=== PATIENT | male | born 1985 | race Caucasian/White ===

== ENCOUNTER 2017-01-09 10:30 | Emergency (ER) | payer MEDICAID ==
[~2017-01-09] VITALS: Ht 188 cm; Wt 97.0 kg
[~2017-01-09 10:30] MED LIST: ROBA750T PO
[2017-01-09 10:37] VITALS: BP 121/91; PULSE 80; RESP 15; TEMP 100.8; O2SAT 98
--- NOTE | 2017-01-09 11:40 | PD ---
HPI Chief Complaint: Pain: Acute or Chronic Time Seen by Provider: 11:40 Travel History International Travel<30 days: No Contact w/Intl Traveler<30days: No Traveled to known affect area: No History of Present Illness HPI 31-year-old male presents to ED for evaluation of less than 24 hour history of bilateral great toe pain, right greater than left. Pain worsened with ambulation. He denies numbness, tingling, weakness, limitation to range of motion of the bilateral lower extremities. Denies fever, chills, known injury to the area. Patient states that he's had a similar episode in the past which he self diagnosed as gout. He states that he attempted to treat with black herrera juice which he states cleared up his symptoms the last episode however no improvement today. Patient denies chronic health problems, takes no daily medications. NKDA. PFSH Past Medical History Diabetes: No Diminished Hearing: No Integumentary: Yes (CONTACT DERMATITIS.) Influenza Vaccination: No ?: Not Past Surgical History Abdominal Surgery: Yes (HERNIA REPAIR) Social History Alcohol Use: Yes (OCC) Tobacco Use: Yes (cigars occasionally) Substance Use: No Allergies-Medications (Allergen,Severity, Reaction): Coded Allergies: No Known Allergies (Verified , 01/09/17) Reported Meds & Prescriptions Reported Meds & Active Scripts Active Indomethacin 50 Mg Cap 50 Mg PO TID 7 Days Take with food, milk, or antacids to decrease stomach adverse effects. Robaxin (Methocarbamol) 750 Mg Tab 750 Mg PO Q4H Review of Systems Except as stated in HPI: all other systems reviewed are Neg Physical Exam Narrative GENERAL: Well-nourished, well-developed white male in no acute distress. SKIN: Warm and dry. Mild erythema of the MCP joints of bilateral great toes. No warmth. No drainage. HEAD: Normocephalic. EYES: No scleral icterus. No injection or drainage. NECK: Supple, trachea midline. No JVD or lymphadenopathy. CARDIOVASCULAR: Regular rate and rhythm without murmurs, gallops, or rubs. 2+ DP pulses bilaterally. RESPIRATORY: Breath sounds equal bilaterally. No accessory muscle use. GASTROINTESTINAL: Abdomen soft, non-tender, nondistended. MUSCULOSKELETAL: No cyanosis, or edema. Tender to palpation of the MCP joint of bilateral great toes, right greater than left. Patient is able to flex and extend the toes bilaterally. Patient is able to flex and extend the ankles bilaterally. Cap refill less than 2 seconds. Sensation intact to light touch distally. BACK: Nontender without obvious deformity. No CVA tenderness. Data Data Last Documented VS Vital Signs Date Time Temp Pulse Resp B/P Pulse Ox O2 Delivery O2 Flow Rate FiO2 01/09/17 10:37 100.8 80 15 121/91 98 Orders Toe (Min 2vws) (01/09/17 11:39) MDM Medical Decision Making Medical Screen Exam Complete: Yes Emergency Medical Condition: Yes Differential Diagnosis Osteoarthritis versus gout versus septic joint versus cellulitis versus fracture versus dislocation versus other Narrative Course 31-year-old male presents to ED for evaluation of less than 24 hour history of bilateral great toe pain, right greater than left. Pain worsened with ambulation. He denies numbness, tingling, weakness, limitation to range of motion of the bilateral lower extremities. Denies fever, chills, known injury to the area. Patient states that he's had a similar episode in the past which he self diagnosed as gout. He states that he attempted to treat with black herrera juice which he states cleared up his symptoms the last episode however no improvement today. Vitals reviewed. Physical exam reveals a well-appearing white male in no acute distress. There is mild erythema of the bilateral MCP joints. No drop warmth or drainage. Right is greater than left. MCP joint also tender to palpation again right greater than left. No deficits of ROM. Neurovascularly intact. X-ray of the great toe does reveal bone spurs. This is podagra. Patient was cautioned to avoid red meat, alcohol, seafood. He was prescribed indomethacin 50 mg 3 times a day 7 days. He is instructed to take medication as prescribed, rest, ice, elevate the extremity, follow up with primary care provider. He indicated understanding of instructions. He is stable and discharged home. Diagnosis Primary Impression: Podagra Referrals: Orthopedist Patient Instructions: General Instructions, Gout (ED) Additional Instructions: Rest, ice, elevate the extremity. Apply ice no longer than 10-15 minutes per hour a few times a day. Indomethacin 3 times a day as prescribed. Avoid red meat, alcohol, seafood. Coffee consumption and has been linked to reduction of gout flares. Return to normal, gentle activity as tolerated. No running, jumping activities for the next few weeks. Follow up with orthopedist next week. Return to the ED for any urgent or emergent medical condition. Med/Other Pt SpecificInfo: Prescription(s) given Scripts Indomethacin 50 Mg Cap50 Mg PO TID 7 Days Ref 0 Take with food, milk, or antacids to decrease stomach adverse effects. Prov:Arnol Rosen MD 01/09/17 Disposition: 01 DISCHARGE HOME Condition: Stable Marilu Means Jan 09, 2017 11:40
[2017-01-09] MEDS ORDERED: INDO50CA PO (12:14)
--- NOTE | 2017-01-09 12:17 | RADHPO ---
EXAM DATE/TIME: 01/09/2017 11:57 [facility] COMPARISON: No previous studies available for comparison. INDICATIONS : Right big toe pain today, no known injury MEDICAL HISTORY : None. SURGICAL HISTORY : None. ENCOUNTER: Initial ACUITY: 1 day PAIN SCORE: 8/10 LOCATION: Right big toe FINDINGS: Examination of the first digit of the right foot demonstrates no evidence of fracture or dislocation. Minimal spurs are seen in the MTP joint region. No radiopaque foreign bodies are seen. The soft ti ssues are intact. CONCLUSION: Minimal spurs at the MTP joint. Av Aviles MD on January 09, 2017 at 12:14 Board Certified Radiologist. This report was verified electronically.
== END 2017-01-09 12:40 | disposition home or self-care (01) ==
LOC: PHEFT 10:30
DX: M10.9 Gout, unspecified (principal)
CPT/HCPCS: 73660; 99283

== ENCOUNTER 2017-05-14 19:39 | Emergency (ER) | payer MEDICAID ==
[~2017-05-14] VITALS: Ht 182.9 cm; Wt 94.0 kg
[~2017-05-14 19:39] MED LIST changes: +INDO50CA PO
[2017-05-14 19:41] VITALS: BP 106/75; PULSE 77; RESP 18; TEMP 99.4; O2SAT 98
--- NOTE | 2017-05-14 19:58 | PD ---
HPI Chief Complaint: Chest Pain Time Seen by Provider: 19:56 Travel History International Travel<30 days: No Contact w/Intl Traveler<30days: No Traveled to known affect area: No History of Present Illness HPI This is a 31-year-old male who presents to the emergency department with left- sided chest discomfort, intermittent, going on for about 3 days. He describes it as a sharp discomfort along the left side of his sternum. He says it came on when he was riding his bike with his son. At the time he did feel short of breath and sweaty that he was riding his bike and he said he is not sure if it was the chest pain or dyspnea outside exerting himself. He has no history of diabetes, hypertension, hyperlipidemia, smoking, cocaine use or immediate family history of heart disease. He says both of his grandparents had heart attacks but they were in their 60s. He denies any recent long trips. PFSH Past Medical History Diabetes: No Diminished Hearing: No Integumentary: Yes (CONTACT DERMATITIS.) Past Surgical History Abdominal Surgery: Yes (HERNIA REPAIR) Social History Alcohol Use: Yes (OCC) Tobacco Use: Yes (cigars occasionally) Substance Use: No Allergies-Medications (Allergen,Severity, Reaction): Coded Allergies: No Known Allergies (Verified , 01/09/17) Reported Meds & Prescriptions Reported Meds & Active Scripts Active Reported Aspirin 81 Mg Chew 81 Mg CHEW DAILY Review of Systems Except as stated in HPI: all other systems reviewed are Neg Physical Exam Narrative GENERAL:Well appearing, no acute distress SKIN: Focused skin assessment warm and dry. HEAD: Atraumatic. Normocephalic. EYES: Pupils equal and round. No injection or drainage. ENT: Moist mucous membranes NECK: Trachea midline. CARDIOVASCULAR: Regular rate and rhythm. No murmur appreciated. RESPIRATORY: Clear to auscultation. Breath sounds equal bilaterally. GASTROINTESTINAL: Abdomen soft, non-tender, nondistended. MUSCULOSKELETAL: No obvious deformities. NEUROLOGICAL: Awake and alert. No obvious cranial nerve deficits. Moving all extremities. PSYCHIATRIC: Appropriate mood and affect; insight and judgment normal. Data Data Last Documented VS Vital Signs Date Time Temp Pulse Resp B/P Pulse Ox O2 Delivery O2 Flow Rate FiO2 05/14/17 20:26 56 20 96 05/14/17 20:24 106/67 107/68 05/14/17 20:00 Nasal Cannula 2 05/14/17 19:41 99.4 Orders Electrocardiogram (05/14/17 19:56) Complete Blood Count With Diff (05/14/17 19:56) Comprehensive Metabolic Panel (05/14/17 19:56) Troponin I (05/14/17 19:56) Ecg Monitoring (05/14/17 19:56) Bilateral Bp Monitoring (05/14/17 19:56) Iv Access Insert/Monitor (05/14/17 19:56) Oximetry (05/14/17 19:56) Oxygen Administration (05/14/17 19:56) Sodium Chloride 0.9% Flush (Ns Flush) (05/14/17 20:00) Chest, Pa & Lat (05/14/17 ) Labs Laboratory Tests Test 05/14/17 20:10 White Blood Count 11.5 TH/MM3 Red Blood Count 4.39 MIL/MM3 Hemoglobin 13.9 GM/DL Hematocrit 40.7 % Mean Corpuscular Volume 92.8 FL Mean Corpuscular Hemoglobin 31.6 PG Mean Corpuscular Hemoglobin 34.0 % Concent Red Cell Distribution Width 12.1 % Platelet Count 282 TH/MM3 Mean Platelet Volume 7.5 FL Neutrophils (%) (Auto) 58.5 % Lymphocytes (%) (Auto) 32.3 % Monocytes (%) (Auto) 5.6 % Eosinophils (%) (Auto) 3.1 % Basophils (%) (Auto) 0.5 % Neutrophils # (Auto) 6.7 TH/MM3 Lymphocytes # (Auto) 3.7 TH/MM3 Monocytes # (Auto) 0.6 TH/MM3 Eosinophils # (Auto) 0.4 TH/MM3 Basophils # (Auto) 0.1 TH/MM3 CBC Comment DIFF FINAL Differential Comment Sodium Level 142 MEQ/L Potassium Level 3.8 MEQ/L Chloride Level 108 MEQ/L Carbon Dioxide Level 27.5 MEQ/L Anion Gap 7 MEQ/L Blood Urea Nitrogen 11 MG/DL Creatinine 1.00 MG/DL Estimat Glomerular Filtration 86 ML/MIN Rate Random Glucose 87 MG/DL Calcium Level 9.2 MG/DL Total Bilirubin 0.3 MG/DL Aspartate Amino Transf 15 U/L (AST/SGOT) Alanine Aminotransferase 30 U/L (ALT/SGPT) Alkaline Phosphatase 90 U/L Troponin I LESS THAN 0.02 NG/ML Total Protein 7.3 GM/DL Albumin 3.9 GM/DL MDM Medical Decision Making Medical Screen Exam Complete: Yes Emergency Medical Condition: Yes Interpretation(s) EKG: Normal sinus rhythm with no ST changes Mild leukocytosis Electrolytes are reassuring Troponin is normal Chest x-rays reassuring Last 24 hours Impressions Chest X-Ray 05/14/17 0000 Signed Impressions: Service Date/Time: Sunday, May 14, 2017 20:03 - CONCLUSION: No acute cardiopulmonary disease. KRandell Jefferson MD Differential Diagnosis Acute coronary syndrome, costochondritis, anxiety, pneumonia, pulmonary embolism Narrative Course This is a 31-year-old male who presents to the emergency department with chest discomfort that going on for 3 days. He is very healthy. He was placed on a monitor and an IV was established. EKG is nonischemic. Labs are all reassuring. Chest x-ray is unremarkable. I had a long conversation with the patient regarding outpatient versus inpatient management. His HEART score is 2 for a moderately suspicious story and risk factor of occasional cigar smoking. I have a very low pretest probability for ACS in this patient. We discussed the option of observation for serial cardiac enzymes and stress testing although I think stress testing would be difficult to interpret and such a low risk patient. He would prefer to go home and follow-up with his primary care physician on Tuesday which I think is very reasonable. Diagnosis Primary Impression: Atypical chest pain Patient Instructions: General Instructions Additional Instructions: If you develop severe chest pain, shortness of breath, sweating, lightheadedness , dizziness or difficulty breathing return to the emergency department immediately. Followup with your primary care physician in 2-3 days if your symptoms are not resolved. Med/Other Pt SpecificInfo: No Change to Meds Disposition: 01 DISCHARGE HOME Condition: Stable Becky Burr MD May 14, 2017 19:58
[2017-05-14 20:00] VITALS: BP 105/78; PULSE 64; RESP 20; O2SAT 100
[2017-05-14] MEDS ORDERED: SODIUM CHLORIDE 0.9% FLUSH 10 ML FLUSH IVF PRN (20:00)
[2017-05-14 20:15] VITALS: BP 105/78; PULSE 70; RESP 20; O2SAT 99
[2017-05-14 20:16] LABS: AUTOMATED NEUTROPHIL # 6.7 TH/MM3 (1.8-7.7); BASOPHIL # 0.1 TH/MM3 (0-0.2); BASOPHIL % 0.5 % (0.0-2.0); EOSINOPHIL # 0.4 TH/MM3 (0-0.4); EOSINOPHIL % 3.1 % (0.0-4.0); HEMATOCRIT 40.7 % (39.0-51.0); HEMO FLAGS DIFF FINAL; LYMPH % 32.3 % (9.0-44.0); LYMPHOCYTE # 3.7 TH/MM3 (1.0-4.8); MEAN CELL VOLUME 92.8 FL (80.0-100.0); MEAN CORPUSCULAR HEMOGLOBIN 31.6 PG (27.0-34.0); MONO % 5.6 % (0.0-8.0); NEUT % 58.5 % (16.0-70.0); PLATELET COUNT 282 TH/MM3 (150-450); RED BLOOD COUNT 4.39 MIL/MM3 (4.50-5.90); RED CELL DISTRIBUTION WIDTH 12.1 % (11.6-17.2); WHITE BLOOD COUNT 11.5 TH/MM3 (4.0-11.0)
[2017-05-14 20:24] VITALS: BP_SYST 106; BP_SYST 107; BP_DIAS 67; BP_DIAS 68; PULSE 56; RESP 20
[2017-05-14 20:24] LABS: CHLORIDE 108 MEQ/L (98-107); POTASSIUM 3.8 MEQ/L (3.5-5.1); SODIUM (NA) 142 MEQ/L (136-145)
[2017-05-14 20:28] LABS: ANION GAP 7 MEQ/L (5-15); BICARBONATE 27.5 MEQ/L (21.0-32.0); BLOOD UREA NITROGEN 11 MG/DL (7-18)
[2017-05-14 20:30] VITALS: BP 99/59; PULSE 60; RESP 20; O2SAT 97
[2017-05-14 20:31] LABS: ALT (GPT) 30 U/L (12-78); AST (GOT) 15 U/L (15-37); GLOMERULAR FILTRATION RATE 86 ML/MIN (>89)
[2017-05-14 20:33] LABS: TOTAL BILIRUBIN ADULT 0.3 MG/DL (0.2-1.0)
[2017-05-14 20:34] LABS: ALKALINE PHOSPHATASE 90 U/L (45-117)
[2017-05-14] MEDS ORDERED: ASPI81CH CHEW (20:34)
--- NOTE | 2017-05-14 20:37 | RADRPT ---
EXAM DATE/TIME: 05/14/2017 20:03 [facility] COMPARISON: No previous studies available for comparison. INDICATIONS : Chest pain. MEDICAL HISTORY : None. SURGICAL HISTORY : None. ENCOUNTER: Initial ACUITY: 3 days PAIN SCORE: 7/10 LOCATION: Left chest. FINDINGS: The lungs are clear without infiltrate, nodule, or mass. There is no appreciable pleural effusion fo r technique. Heart and mediastinum are unremarkable. CONCLUSION: No acute cardiopulmonary disease. Brien Jefferson MD on May 14, 2017 at 20:35 Board Certified Radiologist. This report was verified electronically.
[2017-05-14 21:35] VITALS: BP 120/86
--- NOTE | 2017-05-15 12:41 | EKG ---
Date Performed: 05/14/2017 Time Performed: 19:50:57 PTAGE: 31 years EKG: Sinus rhythm NORMAL ECG INTERPRETATION BASED ON A DEFAULT AGE OF 38 YEARS NO PREVIOUS TRACING DOCTOR: Thomas Perrin Interpretating Date/Time 05/15/2017 12:34:53
== END 2017-05-14 21:44 | disposition home or self-care (01) ==
LOC: PHED 19:39
DX: R07.89 Other chest pain (principal)
CPT/HCPCS: 71020; 80053; 84484; 85025; 93005